=== PATIENT | female | born 1950 | race Caucasian/White ===

== ENCOUNTER 2022-11-08 08:45 | Day surgery (SDC) | payer MEDICARE ==
[~2022-11-08] VITALS: Ht 167.6 cm; Wt 86.2 kg
[~2022-11-08 08:45] MED LIST: ACETAMINOP160 MG/5 M PO; ALLEGRA ALLERGY60 MG PO; BIOTIN FORTE3 MG PO; ESCITALOPRAM OX10 MG PO; HYDROCHLOROT25 MG PO; LOSARTAN POTASS25 MG PO; MELATONIN5 M7 PO; NORVASC5 M1 PO; OMEPRAZOLE20 MG PO; PROBIOTI2 PO; VIT D PO; [UNRECOGNIZED DRUG - OTHER] PO
[2022-11-08 10:46] VITALS: BP 120/74
== END 2022-11-08 11:10 | disposition home or self-care (01) ==
LOC: ENDO 08:45 → ORM 11:40
PROVIDERS: ATTEND Internal Medicine Gastroenterology
PROC: 0DB98ZX Excision of Duodenum, Via Natural or Artificial Opening Endoscopic, Diagnostic (ICD-10-PCS; principal; 2022-11-08)
PROC: 0DB78ZX Excision of Stomach, Pylorus, Via Natural or Artificial Opening Endoscopic, Diagnostic (ICD-10-PCS; 2022-11-08)
DX: K29.70 Gastritis, unspecified, without bleeding (principal); K44.9 Diaphragmatic hernia without obstruction or gangrene; K29.80 Duodenitis without bleeding; K31.7 Polyp of stomach and duodenum